=== PATIENT | male | born 1960 | race Hispanic/Latino ===

== ENCOUNTER 2016-09-02 10:57 | Emergency (ER) | payer OTHER ==
[2016-09-02] MEDS ORDERED: Sodium Chloride 0.9% 1,000 ML IV ONE ×3 (11:28→14:06)
[2016-09-02] MEDS ORDERED: Sodium Chloride 0.9% 1,000 ML ONE ×3 (11:55→14:03)
[2016-09-02 12:04] LABS: BASO # 0.1 K/uL (0.0-0.2); BASO % 1.5 % (0.0-2.0); EOS # 0.1 K/uL (0.0-0.7); EOS % 1.2 % (0.0-4.0); HEMOGLOBIN 15.8 g/dL (12.0-18.0); LYMPH # 2.2 K/uL (1.0-4.3); LYMPH % 26.6 % (20.0-40.0); MEAN CELL VOLUME 92.9 fL (80.0-94.0); MEAN CORPUSCULAR HEMOGLOBIN 32.9 pg (27.0-31.0); MEAN CORPUSCULAR HGB CONC 35.4 g/dL (33.0-37.0); MEAN PLATELET VOLUME 9.1 fL (7.2-11.7); MONO # 0.5 K/uL (0.0-0.8); MONO % 6.3 % (0.0-10.0); NEUT # 5.4 K/uL (1.8-7.0); NEUT % 64.4 % (50.0-75.0); NRBC % 0.1 % (0.0-2.0); RBC 4.82 Mil/uL (4.40-5.90); RED CELL DISTRIBUTION WIDTH 12.6 % (11.5-14.5); WHITE BLOOD COUNT 8.4 K/uL (4.8-10.8)
[2016-09-02 12:10] LABS: ALBUMIN 3.9 g/dL (3.5-5.0)
[2016-09-02 12:13] LABS: ALB/GLOB RATIO 1.1 (1.0-2.1); ALT/SGPT 111 U/L (21-72); AST/SGOT 98 U/L (17-59); BLOOD UREA NITROGEN 13 mg/dL (9-20); GFR AFRICAN-AMERICAN > 60; GFR NON-AFRICAN AMERICAN > 60
[2016-09-02 12:22] LABS: VENOUS BLOOD GAS BASE EXCESS -3.3 mmol/L (0.0-2.0); VENOUS BLOOD GAS PCO2 36 mmHg (40-60); VENOUS BLOOD GAS PO2 46 mm/Hg (30-55); VENOUS BLOOD PH 7.38 (7.32-7.43)
[2016-09-02 12:28] LABS: SQUAMOUS EPITHIAL < 1 /hpf (0-5); URINE BILIRUBIN NEGATIVE (NEGATIVE); URINE BLOOD NEGATIVE (NEGATIVE); URINE CLARITY Clear (Clear); URINE COLOR Straw (YELLOW); URINE GLUCOSE (UA) 3+ mg/dL (Normal); URINE LEUKOCYTE ESTERASE NEG Leu/uL (Negative); URINE NITRATE NEGATIVE (NEGATIVE); URINE PROTEIN NEGATIVE (NEGATIVE); URINE UROBILINOGEN NORMAL mg/dL (0.2-1.0)
[2016-09-02] MEDS ORDERED: (Novolin R) Insulin Human Regular 100 units/ml vial IV ONE (12:40)
[2016-09-02] MEDS ORDERED: (Novolin R) Insulin Human Regular 100 units/ml vial ONE (12:45)
--- NOTE | 2016-09-02 13:32 | C.PDOC ---
History Of Present Illness 55 y/o male c/o bilateral eye discharge and penile discharge for 3 months. Patient states the eye discharge is whitish/clear and penile discharge described as white, intermittent, notices it on his underwear. Patient also reports some numbness and tingling in his B/L feet. He denies chest pain, SOB, abdominal pain, nausea, vomiting, diarrhea. He is sexually active with 1 partner , uses protection, but notes possiblity that he may have STD. Patient denies any past medical history and has not seen a doctor in > 10 years. Time Seen by Provider: 09/02/16 11:17 Chief Complaint (Nursing): Eye Problem History Per: Patient History/Exam Limitations: no limitations Current Symptoms Are (Timing): Still Present Severity: Moderate Radiation Of Pain To:: None Associated Symptoms: Urinary Symptoms. denies: Fever, Vomiting, Diarrhea Past Medical History Reviewed: Historical Data, Nursing Documentation, Vital Signs Vital Signs: Last Vital Signs Temp 98 F 09/02/16 14:32 Pulse 90 09/02/16 16:05 Resp 20 09/02/16 16:05 BP 133/93 H 09/02/16 16:05 Pulse Ox 98 09/02/16 16:05 - Medical History PMH: No Chronic Diseases Surgical History: Appendectomy Family History: States: No Known Family Hx - Social History Hx Alcohol Use: Yes Hx Substance Use: No Review Of Systems Except As Marked, All Systems Reviewed And Found Negative. Constitutional: Negative for: Fever, Chills Eyes: Positive for: Other (discharge) Cardiovascular: Negative for: Chest Pain Respiratory: Negative for: Cough, Shortness of Breath Gastrointestinal: Negative for: Nausea, Vomiting Genitourinary: Positive for: Penile Discharge. Negative for: Dysuria, Scrotal Pain Skin: Negative for: Rash Neurological: Negative for: Headache, Dizziness Physical Exam - Physical Exam Appears: Well, Non-toxic, Other (anxious) Skin: Normal Color, Warm, Dry Head: Atraumatic, Normacephalic Eye(s): bilateral: Normal Inspection, PERRL, EOMI Oral Mucosa: Moist Neck: Supple Lymphatic: No Inguinal Node Tenderness Cardiovascular: Rhythm Regular (tachycardic) Respiratory: Normal Breath Sounds, No Rales, No Rhonchi, No Wheezing Gastrointestinal/Abdominal: Normal Exam, Bowel Sounds, Soft, No Tenderness Back: Normal Inspection Male Genital: No Testicular Tenderness, No Circumcised, Other (uncircumcised, small amount of thick whitish discharge at meatus, fungal in appearance) Extremity: Normal ROM, No Pedal Edema, No Calf Tenderness Neurological/Psych: Oriented x3 ED Course And Treatment - Laboratory Results Result Diagrams: 09/02/16 11:58 09/02/16 15:03 O2 Sat by Pulse Oximetry: 97 (RA) Pulse Ox Interpretation: Normal Progress Note: Bloodwork, GC urine, UA ordered and reviewed. Patient given IV NS bolus x 3 and IV insuli. IM rocephin and PO Azithromycin given for chlamydia /gonorrhea coverage. Reevaluation Time: 16:00 Reassessment Condition: Improved (Patient reassessed, is resting comfortably and states he is feeling much better. Patient given Rxs for metformin and lisinopril, and was given scheduled appointment for medical clinic follow up. He understands he should return to ED if he develops any concerning symptoms.) - Physician Consult Information Physician Contacted: Rigo Perez Outcome Of Conversation: Discussed patient with Dr. Parveen perez, thinks patient can be discharged with Rx for metformin/lisinopril and follow up in medical clinic. 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 Critical Care Time - Critical Care Note Total Time (in mins): 40 Documented critical care: time excludes all time spent performing seperately billable procedures. Disposition Counseled Patient/Family Regarding: Studies Performed, Diagnosis, Need For Followup, Rx Given - Disposition Referrals: [facility] ([place] [Outside] Disposition: HOME/ ROUTINE Disposition Time: 16:00 Condition: STABLE Additional Instructions: FOLLOW UP IN MEDICAL CLINIC IN SCHEDULED USE MEDICATIONS DAILY DRINK PLENTY OF FLUIDS RETURN TO ER IF SYMPTOMS WORSEN Prescriptions: Lisinopril [Zestril] 10 mg PO DAILY #30 tablet Lisinopril [Zestril] 10 mg PO DAILY #30 tab metFORMIN [glucOPHAGE] 500 mg PO BID #60 tab metFORMIN [glucOPHAGE] 500 mg PO BID #60 tab Nystatin [Mycostatin Oint] 1 applic TOP TID #1 tube Instructions: How to Check Your Blood Sugar (ED), Diabetes Mellitus Type 2 in Adults (ED) Print Language: MALAYSIAN - POA Present On Arrival: None - Clinical Impression Clinical Impression: New onset type 2 diabetes mellitus, Rosalia infection of genital region - Scribe Statement The provider has reviewed the documentation as recorded by the Leesa Mas Provider Attestation: All medical record entries made by the Leesa were at my direction and personally dictated by me. I have reviewed the chart and agree that the record accurately reflects my personal performance of the history, physical exam, medical decision making, and the department course for this patient. I have also personally directed, reviewed, and agree with the discharge instructions and disposition.
[2016-09-02] MEDS ORDERED: cefTRIAXone (Rocephin) 250 mg Inj IM STA (13:53)
[2016-09-02 14:33] VITALS: TEMP 98
[2016-09-02 15:25] LABS: GFR AFRICAN-AMERICAN > 60; GFR NON-AFRICAN AMERICAN > 60
[2016-09-02 15:26] LABS: BLOOD UREA NITROGEN 9 mg/dL (9-20); CALCIUM 7.7 mg/dl (8.6-10.4)
[2016-09-02 16:07] VITALS: BP 133/93; PULSE 90; RESP 20
--- NOTE | 2016-09-05 12:36 | CARD ---
APPROVED REPORT EKG Measurement Heart [id number] <Conclusion> Sinus tachycardia Otherwise normal ECG
[2016-09-12 11:25] VITALS: O2SAT 97
== END 2016-09-02 16:06 | disposition home or self-care (01) ==
LOC: C.ER 10:57
DX: B37.49 Other urogenital candidiasis (principal); E11.9 Type 2 diabetes mellitus without complications
CPT/HCPCS: 80053; 81001; 82009; 82803; 82948; 85025; 87040; 87086; 87491; 87591; 93005; 96360; 96361; 96372; 99285; J0696; J7040